=== PATIENT | male | born 1955 | race Caucasian/White ===

== ENCOUNTER 2023-09-26 06:00 | Inpatient (IN) | payer OTHER ==
[~2023-09-26] VITALS: Ht 177.8 cm; Wt 105.3 kg
[2023-09-26] MEDS ORDERED: CEFAZOLIN SOD 2 GM in D5W 50 ML IV ONE (06:45)
[2023-09-26] MEDS ORDERED: MIDAZOLAM HCL 2 MG/2 ML VIAL (VERSED) ONE (09:36)
[2023-09-26] MEDS ORDERED: BACITRACIN ZINC 15 GM TOPICAL OINTMENT TP ONE (09:36)
[2023-09-26] MEDS ORDERED: ACETAMINOPHEN I.V. 1000 MG 100 ML IV ONE ×2 (10:10)
[2023-09-26] MEDS ORDERED: MEPERIDINE HCL/PF 25 MG/ML DISP.SYRIN IVP PRN (10:15)
[2023-09-26] MEDS ORDERED: MORPHINE 4 MG INJ. 4 MG/ML VIAL IVP PRN (10:15)
[2023-09-26] MEDS ORDERED: LR 1,000 ML IV SCH (10:15)
[2023-09-26] MEDS ORDERED: HYDROmorphone 1 MG/ML INJ. CARTRIDGE IVP PRN (10:15)
[2023-09-26] MEDS ORDERED: ONDANSETRON HCL 4 MG/2 ML VIAL IVP PRN ×2 (10:15→13:30)
[2023-09-26] MEDS ORDERED: GLUCOSE (DEXTROSE) ORAL GEL -Adults PO PRN (13:30)
[2023-09-26] MEDS ORDERED: D5W 1,000 ML IV PRN (13:30)
[2023-09-26] MEDS ORDERED: ONDANSETRON 4 MG ODT TAB PO PRN (13:30)
[2023-09-26] MEDS ORDERED: HYDROcodone/ACETAMIN 5-325 MG TAB (NORCO/ VICODIN) PO PRN (13:30)
[2023-09-26] MEDS ORDERED: DEXTROSE 50% JECT 50 ML DISP.SYRIN IVP PRN (13:30)
[2023-09-26] MEDS ORDERED: KCL 20 mEq in D5/0.45NS 1000mL 1,000 ML IV SCH (13:30)
[2023-09-26] MEDS ORDERED: ATOR-449 PO (13:42)
[2023-09-26] MEDS ORDERED: METF-381 PO (13:46)
[2023-09-26] MEDS ORDERED: TAMS-11 PO (13:46)
[2023-09-26] MEDS ORDERED: GLIP5TAB26 PO (13:47)
[2023-09-26] MEDS ORDERED: LISI10TA29 PO (13:47)
[2023-09-26] MEDS ORDERED: BUPR100T13 PO (13:48)
[2023-09-26] MEDS ORDERED: PIOG30TA71 PO (13:49)
[2023-09-26] MEDS ORDERED: FENO160 PO (13:50)
[2023-09-26] MEDS ORDERED: LABETALOL HCL 20 MG/4 ML CARTRIDGE IVP ONE (14:27)
[2023-09-26] MEDS: LABETALOL 100 MG/ 20ML VIAL IVP PRN (14:30)
[2023-09-26 15:22] VITALS: BP_SYST 162; PULSE 101; RESP 18; TEMP 97.4
[2023-09-26 17:18] VITALS: BP_SYST 152; PULSE 97; RESP 18; TEMP 98.7; O2SAT 92
[2023-09-26] MEDS: KCL 20 mEq in 0.45% NS 1000 mL 1,000 ML IV SCH (18:01)
[2023-09-26 20:30] VITALS: BP_SYST 149; PULSE 102; RESP 18; TEMP 98.1; O2SAT 92
[2023-09-26] MEDS: CALCIUM 500 MG/TAB PO SCH (20:33)
[2023-09-26] MEDS: TAMSULOSIN HCL 0.4 MG CAP PO SCH (20:33)
[2023-09-26] MEDS: metFORMIN HCL 500 MG TABLET PO SCH (20:34)
[2023-09-26] MEDS ORDERED: NON-FORMULARY MEDICATION (Metformin Hcl 1,000 MG) PO SCH (21:00)
[2023-09-26 22:25] LABS: ALBUMIN 3.2 g/dL (3.4-4.8); CALCIUM 7.8 mg/dL (8.4-11.0); CREATININE 1.23 mg/dL (0.55-1.30); POTASSIUM 3.9 mmol/L (3.5-5.1); TOTAL BILIRUBIN 1.2 mg/dL (0.0-1.0); TOTAL PROTEIN, SERUM 6.5 g/dL (6.4-8.3)
[2023-09-27 00:05] VITALS: BP_SYST 143; PULSE 96; RESP 18; TEMP 98.4; O2SAT 93
[2023-09-27 04:05] VITALS: BP_SYST 146; PULSE 85; RESP 18; TEMP 97.9; O2SAT 93
[2023-09-27] MEDS: LEVOTHYROXINE SODIUM 0.15 MG TABLET PO SCH (06:23)
[2023-09-27 06:49] LABS: CALCIUM 7.8 mg/dL (8.4-11.0)
[2023-09-27 08:00] VITALS: BP_SYST 151; PULSE 78; RESP 19; TEMP 98.2; O2SAT 98
[2023-09-27 08:05] VITALS: O2SAT 98
[2023-09-27] MEDS ORDERED: LISINOPRIL 10 MG TABLET (PRINIVIL) PO SCH (09:00)
[2023-09-27] MEDS ORDERED: FENOFIBRATE 160 MG TABLET PO SCH (09:00)
[2023-09-27] MEDS: glipiZIDE XL 5 MG TAB ( GLUCOTROL XL) PO SCH (09:29)
[2023-09-27] MEDS: PIOGLITAZONE HCL 15 MG TABLET PO SCH (09:32)
[2023-09-27] MEDS: buPROPion HCL 100 MG TABLET PO SCH (09:32)
[2023-09-27] MEDS: ATORVASTATIN 10 MG TABLET PO SCH (09:33)
[2023-09-27 12:05] VITALS: BP_SYST 150; PULSE 77; RESP 18; TEMP 97.1; O2SAT 97
[2023-09-27 15:06] VITALS: BP_SYST 156; PULSE 78; RESP 18; TEMP 98.5; O2SAT 98
== END 2023-09-27 15:35 | disposition home or self-care (01) | DRG 627 ==
LOC: SMU 06:00 → SDS 06:00 → SMU 16:25 → SDS 16:25
PROVIDERS: ADMIT Otolaryngology; ATTEND Otolaryngology
PROC: 0GTH0ZZ Resection of Right Thyroid Gland Lobe, Open Approach (ICD-10-PCS; 2023-09-26)
PROC: 4A11X4G Monitoring of Peripheral Nervous Electrical Activity, Intraoperative, External Approach (ICD-10-PCS; 2023-09-26)
PROC: 0GTG0ZZ Resection of Left Thyroid Gland Lobe, Open Approach (ICD-10-PCS; principal; 2023-09-26 08:42)
DX: C73 Malignant neoplasm of thyroid gland (principal); Z79.899 Other long term (current) drug therapy
CPT/HCPCS: 36415; 80053; 82040; 82310; 82948; 83970; 87081; 88307; J0131; J0330; J0690; J1100; J2704; J3010; J3465; J3480; J7060; J7120